=== PATIENT | female | born 1995 | race Caucasian/White ===

== ENCOUNTER 2017-02-23 18:39 | Emergency (ER) | payer OTHER ==
[2017-02-23 19:00] VITALS: BP 104/53
--- NOTE | 2017-02-23 19:46 | UC ---
Upper Extremity HPI - HPI Summary HPI Summary: Found tick on R arm 2 days ago, removed with credit card. Was hiking the day before, thinks it could not have been on longer than 18 hours. Here because she is concerned about tick-borne illness. - History of Current Complaint Chief Complaint: Timmy Stated Complaint: TICK BITE Time Seen by Provider: 02/23/17 19:22 Hx Obtained From: Patient Hx Last Menstrual Period: 02/21/17 ?: No Onset/Duration: Sudden Onset Severity Initially: Mild Severity Currently: None Alleviating Factor(s): Nothing Associated Signs And Symptoms: Positive: Negative - Allergies/Home Medications Allergies/Adverse Reactions: Allergies Allergy/AdvReac Type Severity Reaction Status Date / Time Latex Allergy Rash Unverified 04/05/14 14:21 peanuts Allergy GI Upset Uncoded 07/21/15 17:25 Home Medications: Home Medications Melatonin 1 mg PO 02/23/17 [History] Zinc [Zinc Chelated] 50 mg PO 02/23/17 [History] PMH/Surg Hx/FS Hx/Imm Hx Previously Healthy: Yes - Surgical History Surgical History: None - Family History Known Family History: Negative: Blood Disorder - Social History Alcohol Use: None Substance Use Type: None Smoking Status (MU): Never Smoked Tobacco Have You Smoked in the Last Year: No - Immunization History Most Recent Influenza Vaccination: 2014 Review of Systems Constitutional: Negative Skin: Other - tick bite R arm Eyes: Negative ENT: Negative Respiratory: Negative Cardiovascular: Negative Gastrointestinal: Negative Genitourinary: Negative Motor: Negative Neurovascular: Negative Musculoskeletal: Negative Neurological: Negative Psychological: Negative All Other Systems Reviewed And Are Negative: Yes Physical Exam Triage Information Reviewed: Yes Appearance: Well-Appearing, No Pain Distress, Well-Nourished Vital Signs: Initial Vital Signs Temp 99.4 F 02/23/17 18:56 Pulse 79 02/23/17 18:56 Resp 18 02/23/17 18:56 BP 104/53 02/23/17 18:56 Pulse Ox 100 02/23/17 18:56 Vital Signs Reviewed: Yes Eye Exam: Normal Eyes: Positive: Conjunctiva Clear ENT Exam: Normal ENT: Positive: Normal ENT inspection, Hearing grossly normal, Pharynx normal, TMs normal Dental Exam: Normal Neck exam: Normal Neck: Positive: Supple, Nontender, No Lymphadenopathy Respiratory Exam: Normal Respiratory: Positive: Chest non-tender, Lungs clear, Normal breath sounds, No respiratory distress, No accessory muscle use Cardiovascular Exam: Normal Cardiovascular: Positive: RRR, No Murmur Musculoskeletal Exam: Normal Neurological Exam: Normal Neurological: Positive: Alert Psychological Exam: Normal Skin Exam: Other - tick bite site R arm benign, no ecchymosis, streaking, drainage, or open area. Upper Extremity Course/Dx - Differential Dx/Diagnosis Provider Diagnoses: tick bite R arm low-risk for tick-borne illness. Discharge - Discharge Plan Condition: Stable Disposition: HOME Patient Education Materials: Tick Bite (ED) Referrals: No Primary Care Phys,NOPCP [Primary Care Provider] - Additional Instructions: If you develop any of the following, please see your physician or return here promptly: (1) Fever, chills, or generalized malaise associated with a headache. (2) A red round area at the site of the bite (or elsewhere) (3) Joint pain, joint swelling or generalized weakness. (4) Redness, swelling, or drainage at the site of the bite. Check yourself, your children and your pets for ticks whenever you've been in an area where ticks live. To remove a tick, grasp it firmly with some tweezers or a string in a slipknot as close to its head as possible and pull it steadily. Ticks do not have a typical "head" attached to their body. There are mouth parts sticking out which they use to feed. If there are mouth parts left behind in the wound there is NO increased risk of Lyme infection; however, the chances of a bacterial skin infection (cellulitis) are higher. If mouth parts remain after tick removal, the best thing to do is apply warm soaks to the area 3-4 times per day to encourage the skin to expel the foreign material. WHEN A TICK IS NOT ENGORGED AND HAS BEEN ON LESS THAN 24 HOURS - THE RISK FOR LYME IS VERY SMALL. YOU CAN REMOVE THE TICK AND OBSERVE THE AREA ON YOUR OWN.
== END 2017-02-23 19:46 | disposition home or self-care (01) ==
LOC: UCEAST 18:39
DX: S40.861A Insect bite (nonvenomous) of right upper arm, initial encounter (principal); W57.XXXA Bitten or stung by nonvenomous insect and other nonvenomous arthropods, initial encounter
CPT/HCPCS: 99211; G0463